=== PATIENT | female | born 1955 | race African-American/Black ===

== ENCOUNTER 2023-11-16 19:15 | Emergency (ER) | payer OTHER ==
[2023-11-16 19:52] VITALS: RESP 18; TEMP 98.6; BMI 31.2
[2023-11-16 22:49] VITALS: BP 146/74; PULSE 104
== END 2023-11-17 00:36 | disposition home or self-care (01) ==
LOC: JER 19:15
PROC: 0D20XUZ Change Feeding Device in Upper Intestinal Tract, External Approach (ICD-10-PCS; principal; 2023-11-16)
DX: K94.23 Gastrostomy malfunction (principal)
CPT/HCPCS: 74018-TC-FY; 82962; 99283-25

== ENCOUNTER 2023-11-17 12:46 | Observation (INO) | payer OTHER ==
[2023-11-17 14:50] LABS: BASO % 0.7 % (0-2.0); EOS % 2.7 % (0-4.5); HEMATOCRIT 34.8 % (32.4-45.2); HEMOGLOBIN 10.9 GM/dL (10.7-15.3); LYMPH % 18.4 % (8-40); MCH 24.9 pg (25.7-33.7); MCHC 31.4 g/dl (32.0-36.0); MEAN CELL VOLUME 79.1 fl (80-96); MONO % 6.7 % (3.8-10.2); NEUT % 71.5 % (42.8-82.8); PLATELET COUNT 667 10^3/uL (134-434); RDW 18.9 % (11.6-15.6); WHITE BLOOD COUNT 10.7 K/mm3 (4.0-10.0)
[2023-11-17] MEDS: LACTATED RINGERS SOLUTION 1,000 ML/1,000 ML INFUS.BAG IV SCH (14:50)
[2023-11-17 14:53] LABS: INR 1.15 (0.83-1.09); PROTHROMBIN TIME (PATIENT) 12.9 SEC (9.7-13.0)
[2023-11-17 14:55] LABS: ACTIVATED PTT 29.1 SECONDS (25.2-36.5)
[2023-11-17 15:03] LABS: POTASSIUM 4.9 mmol/L (3.5-5.1)
[2023-11-17 15:05] LABS: CALCIUM 9.9 mg/dL (8.5-10.1)
[2023-11-17 15:06] LABS: BLOOD UREA NITROGEN 17.3 mg/dL (7-18)
[2023-11-17 15:09] LABS: CREATININE 0.5 mg/dL (0.55-1.3)
[2023-11-17 15:10] LABS: BILIRUBIN,TOTAL 0.5 mg/dL (0.2-1); TOT PROT 7.2 g/dl (6.4-8.2)
[2023-11-17] MEDS ORDERED: GLYCERIN OU SCH (18:00)
[2023-11-17] MEDS ORDERED: [UNRECOGNIZED DRUG - OTHER] OU SCH (18:00)
[2023-11-17] MEDS ORDERED: DEXTRAN OU SCH (18:00)
[2023-11-17] MEDS ORDERED: HYPROMELLOSE OU SCH (18:00)
[2023-11-17] MEDS: ARTIFICIAL TEARS OPHTHALMIC DROPS OU SCH (18:13)
[2023-11-17] MEDS: MINERAL OIL/PETROLATUM,WHITE 3.5 GM TUBE OU SCH (22:34)
[2023-11-18 07:55] LABS: BASO % 0.6 % (0-2.0); EOS % 3.2 % (0-4.5); HEMATOCRIT 29.3 % (32.4-45.2); HEMOGLOBIN 9.2 GM/dL (10.7-15.3); LYMPH % 24.7 % (8-40); MCH 25.1 pg (25.7-33.7); MCHC 31.3 g/dl (32.0-36.0); MEAN CELL VOLUME 80.2 fl (80-96); MEAN PLT VOLUME 8.2 fl (7.5-11.1); MONO % 6.6 % (3.8-10.2); NEUT % 64.9 % (42.8-82.8); PLATELET COUNT 565 10^3/uL (134-434); RBC 3.65 M/mm3 (3.60-5.2); RDW 18.4 % (11.6-15.6); WHITE BLOOD COUNT 7.5 K/mm3 (4.0-10.0)
[2023-11-18 08:17] LABS: POTASSIUM 4.2 mmol/L (3.5-5.1)
[2023-11-18 08:23] LABS: BLOOD UREA NITROGEN 14.2 mg/dL (7-18); CALCIUM 9.5 mg/dL (8.5-10.1)
[2023-11-18 08:24] LABS: ALBUMIN 2.7 g/dl (3.4-5.0); MAGNESIUM 1.8 mg/dL (1.8-2.4)
[2023-11-18 08:27] LABS: CREATININE 0.4 mg/dL (0.55-1.3)
[2023-11-18 08:28] LABS: TOT PROT 6.1 g/dl (6.4-8.2)
[2023-11-18 08:29] LABS: BILIRUBIN,TOTAL 0.4 mg/dL (0.2-1)
[2023-11-18] MEDS: ENOXAPARIN NA (PORCINE) 40 MG/0.4 ML DISP.SYRIN SQ SCH (09:51)
[2023-11-18] MEDS ORDERED: DEXTROSE 50%-WATER - 25 GM/50 ML VIAL IVPUSH PRN (14:48)
[2023-11-18] MEDS: INSULIN ASPART SLIDING SCALE (NOVOLOG) 1 VIAL SQ SCH (16:07)
[2023-11-18] MEDS: morphine SULFATE 4 MG/ML VIAL IVPUSH ONE (16:08)
[2023-11-18] MEDS: INSULIN (LEVEMIR) 100 UNITS/ML UNITS SQ SCH (21:35)
[2023-11-19] MEDS ORDERED: INSULIN (NOVOLOG) ASPART 100 UNITS/ML 10ML VIAL ONE ×3 (05:55→21:19)
[2023-11-19] MEDS: amLODIPine BESYLATE 10 MG TABLET (FP) GT SCH (10:38)
[2023-11-19] MEDS: ROSUVASTATIN CA 20 MG TABLET NGT SCH (10:39)
[2023-11-19] MEDS: ASPIRIN 81 MG CHEWABLE TABLETS PEG SCH (10:39)
[2023-11-19 13:52] VITALS: BMI 32.5
[2023-11-20 07:55] LABS: BASO % 0.3 % (0-2.0); LYMPH % 18.5 % (8-40); MCH 25.4 pg (25.7-33.7); MCHC 32.4 g/dl (32.0-36.0); MEAN CELL VOLUME 78.5 fl (80-96); MONO % 6.4 % (3.8-10.2); NEUT % 72.8 % (42.8-82.8); PLATELET COUNT 629 10^3/uL (134-434); RBC 3.94 M/mm3 (3.60-5.2); RDW 18.5 % (11.6-15.6); WHITE BLOOD COUNT 7.5 K/mm3 (4.0-10.0)
[2023-11-20 08:11] LABS: POTASSIUM 4.1 mmol/L (3.5-5.1)
[2023-11-20 08:15] LABS: BLOOD UREA NITROGEN 12.5 mg/dL (7-18); CALCIUM 9.2 mg/dL (8.5-10.1)
[2023-11-20 08:19] LABS: CREATININE 0.5 mg/dL (0.55-1.3)
[2023-11-20] MEDS ORDERED: SILVER SULFADIAZINE 1% TOP CREAM 50 GM JAR TP SCH ×2 (10:00)
[2023-11-20] MEDS ORDERED: INSULIN (NOVOLOG) ASPART 100 UNITS/ML 10ML VIAL ONE ×2 (11:13→22:17)
[2023-11-21] MEDS ORDERED: INSULIN (NOVOLOG) ASPART 100 UNITS/ML 10ML VIAL ONE (21:24)
[2023-11-21 21:39] VITALS: TEMP 98.4
[2023-11-22 06:47] VITALS: BP 143/73; PULSE 95; RESP 18
[2023-11-22] MEDS ORDERED: INSULIN (NOVOLOG) ASPART 100 UNITS/ML 10ML VIAL ONE (11:11)
== END 2023-11-22 13:41 ==
LOC: JER 12:46 → JERBED 15:28 → J7W 21:03
PROVIDERS: ADMIT Internal Medicine
PROC: 0D20XUZ Change Feeding Device in Upper Intestinal Tract, External Approach (ICD-10-PCS; principal; 2023-11-17)
PROC: 3E023GC Introduction of Other Therapeutic Substance into Muscle, Percutaneous Approach (ICD-10-PCS; 2023-11-17)
PROC: 3E013VG Introduction of Insulin into Subcutaneous Tissue, Percutaneous Approach (ICD-10-PCS; 2023-11-17)
PROC: 3E033NZ Introduction of Analgesics, Hypnotics, Sedatives into Peripheral Vein, Percutaneous Approach (ICD-10-PCS; 2023-11-17)
DX: K94.20 Gastrostomy complication, unspecified (principal); I69.820 Aphasia following other cerebrovascular disease; I69.891 Dysphagia following other cerebrovascular disease; E11.9 Type 2 diabetes mellitus without complications; J44.9 Chronic obstructive pulmonary disease, unspecified; I10 Essential (primary) hypertension
CPT/HCPCS: 36415; 49440; 74230-TC-FY; 80048; 80053; 82962; 83735; 85025; 85610; 85730; 86850; 86900; 86901; 92611-GN; 93005; 93010; 93971; 96372; 96374; 97161-GP; 99285-25; G0378